=== PATIENT | female | born 1940 | race Caucasian/White ===

== ENCOUNTER → 2020-06-28 | Outpatient (CLI) | payer MEDICARE | LOC: KOH-I 11:42 | DX: M25.552 Pain in left hip (principal); M25.551 Pain in right hip; M54.5 Low back pain | CPT/HCPCS: 72110; 73522 ==

== ENCOUNTER → 2020-07-01 | Outpatient (CLI) | payer MEDICARE | LOC: KOH-I 13:46 | DX: M79.605 Pain in left leg (principal) | CPT/HCPCS: 73700; 93971 ==

== ENCOUNTER → 2020-07-19 | Outpatient (CLI) | payer MEDICARE | LOC: KOH-I 09:41 | DX: M51.16 Intervertebral disc disorders with radiculopathy, lumbar region (principal); M43.16 Spondylolisthesis, lumbar region; M51.27 Other intervertebral disc displacement, lumbosacral region; M48.061 Spinal stenosis, lumbar region without neurogenic claudication; M48.07 Spinal stenosis, lumbosacral region | CPT/HCPCS: 72148 ==

== ENCOUNTER → 2020-11-03 | Outpatient (CLI) | payer MEDICARE | LOC: HEART 5 07:54 | DX: R00.2 Palpitations (principal) ==

== ENCOUNTER → 2021-07-29 | Outpatient (CLI) | payer MEDICARE | LOC: US 14:01 | DX: M79.662 Pain in left lower leg (principal); M71.22 Synovial cyst of popliteal space [Baker], left knee | CPT/HCPCS: 73590; 93971 ==

== ENCOUNTER 2021-08-17 08:50 | Emergency (ER) | payer MEDICARE ==
[2021-08-17] MEDS ORDERED: HYDROCODON-ACE1 EAC4 PO (11:17)
== END 2021-08-17 11:35 | disposition home or self-care (01) ==
LOC: ER1 08:50
DX: S82.001A Unspecified fracture of right patella, initial encounter for closed fracture (principal); I11.9 Hypertensive heart disease without heart failure; I48.91 Unspecified atrial fibrillation; W01.10XA Fall on same level from slipping, tripping and stumbling with subsequent striking against unspecified object, initial encounter; Y92.009 Unspecified place in unspecified non-institutional (private) residence as the place of occurrence of the external cause
CPT/HCPCS: 70450; 73562; 93005; 99284